=== PATIENT | female | born 1935 | race African-American/Black ===

== ENCOUNTER → 2020-10-29 | Day surgery (SDC) | payer MEDICARE, MEDICAID ==
[~2020-10-29] VITALS: Ht 171.4 cm; Wt 81.6 kg
[~2020-10-29] MED LIST: AMLO10TA80; ASPI-1406; B COMPLEX; CHOL400T15 PO; FURO20TA4 PO; LACTATED RINGERS 1,000 ML IV SCH; MIDAZOLAM HCL 5 MG/5 ML VIAL ONE; MULT-1146 PO; OLME40TA18 PO; OMEP20CA14 PO; PROP80CA2 PO; PROPOFOL 200MG/20ML VIAL IV ONE; SPIR50TA5 PO; VITAMIN C; VITAMIN E; [UNRECOGNIZED DRUG - OTHER]
== END | disposition home or self-care (01) ==
LOC: OR 07:30
PROVIDERS: ATTEND Internal Medicine Gastroenterology
DX: Z12.11 Encounter for screening for malignant neoplasm of colon (principal); K64.8 Other hemorrhoids; K57.30 Diverticulosis of large intestine without perforation or abscess without bleeding; K74.60 Unspecified cirrhosis of liver; I85.00 Esophageal varices without bleeding; B18.2 Chronic viral hepatitis C; K44.9 Diaphragmatic hernia without obstruction or gangrene; K31.89 Other diseases of stomach and duodenum; K63.89 Other specified diseases of intestine; I10 Essential (primary) hypertension; Z79.82 Long term (current) use of aspirin; Z79.899 Other long term (current) drug therapy; Z87.891 Personal history of nicotine dependence; Z98.890 Other specified postprocedural states; Z88.8 Allergy status to other drugs, medicaments and biological substances; Z82.49 Family history of ischemic heart disease and other diseases of the circulatory system; Z83.3 Family history of diabetes mellitus
CPT/HCPCS: 43239; 88305; 88312; 88313; 93005; G0105; J2250; J2704

== ENCOUNTER 2025-05-04 19:56 | Emergency (ER) | payer MEDICARE, MEDICAID ==
[~2025-05-04] VITALS: Ht 172.7 cm; Wt 69.0 kg
[~2025-05-04 19:56] MED LIST changes: -B COMPLEX; -CHOL400T15 PO; -LACTATED RINGERS 1,000 ML IV SCH; -MIDAZOLAM HCL 5 MG/5 ML VIAL ONE; -MULT-1146 PO; -OMEP20CA14 PO; -PROP80CA2 PO; -PROPOFOL 200MG/20ML VIAL IV ONE; -VITAMIN C; -VITAMIN E; -[UNRECOGNIZED DRUG - OTHER]
[2025-05-04 19:59] VITALS: TEMP 98.4; O2SAT 97
[2025-05-04] MEDS: KETOROLAC 15MG/ML VIAL IV ONE (21:00)
[2025-05-04 21:02] LABS: BASOPHILS % 1.0 % (0.0-2.0); EOSINOPHILS % 2.0 % (0.0-5.0); HEMATOCRIT. 44.1 % (36.0-48.0); HEMOGLOBIN. 14.5 g/dL (12.0-16.0); LYMPHOCYTES % 41.0 % (20.0-50.0); MEAN PLATELET VOLUME 10.1 fl (7.4-10.4); MONOCYTES % 12.9 % (2.0-8.0); NEUTROPHILS % 43.1 % (40.0-76.0); PLATELET 130 x1000/uL (130-400); RED BLOOD CELL COUNT 4.93 mill/uL (4.2-5.4); RED CELL DISTRIBUTION WIDTH 15.4 % (11.6-14.6)
[2025-05-04] MEDS: CLONIDINE 0.1MG TABLET PO ONE (22:34)
[2025-05-04 23:09] LABS: CREATININE 0.9 mg/dL (0.6-1.0)
[2025-05-04 23:10] LABS: PROTEIN TOTAL 6.5 g/dL (6.0-8.3); UREA NITROGEN BLOOD 12 mg/dL (9-23)
[2025-05-04 23:12] LABS: ASPARTATE AMINOTRANSFERASE 54 IU/L (<34); BILIRUBIN TOTAL 1.1 mg/dL (0.1-1.0)
[2025-05-04] MEDS ORDERED: TOPUD PO (23:19)
[2025-05-04 23:45] VITALS: BP 152/93; PULSE 70; RESP 16; O2SAT 97
== END 2025-05-04 23:54 | disposition home or self-care (01) ==
LOC: ER 19:56
DX: I49.8 Other specified cardiac arrhythmias (principal); R51.9 Headache, unspecified; I10 Essential (primary) hypertension; Z88.5 Allergy status to narcotic agent; Z79.899 Other long term (current) drug therapy
CPT/HCPCS: 99285; 96374; 70450; 80053; 83735; 85025; 36415; 93005; J1885